=== PATIENT | female | born 1940 | race Caucasian/White ===

== ENCOUNTER 2024-09-15 11:24 | Emergency (ER) | payer MEDICARE, OTHER ==
[~2024-09-15] VITALS: Ht 157.5 cm; Wt 58.0 kg
[~2024-09-15 11:24] MED LIST: ALBU8.5H2 INH; AMLO1CAP59 PO; CALC-336 PO; CYAN100087 PO; IBUP-24 PO; IRBE150T51 PO; OLOP2.5D12 OP; [UNRECOGNIZED DRUG - CODE] PO
[2024-09-15 11:51] LABS: BILIRUBIN,URINE NEGATIVE (Neg); CLARITY,URINE CLOUDY (Clear); COLOR,URINE YELLOW (Yellow); GLUCOSE, URINE NEGATIVE (Neg); KETONES,URINE NEGATIVE (Neg); LEUKOCYTE ESTERASE ,URINE MODERATE (Neg); NITRITES, URINE NEGATIVE (Neg); OCCULT BLOOD,URINE MODERATE (Neg); PROTEIN,URINE TRACE mg/dl (Neg); UROBILINOGEN,URINE 0.2 E.U/dL (0.2-1.0)
[2024-09-15 11:56] LABS: UA COLLECTION TYPE CLN CATCH MIDSTREAM
[2024-09-15 11:57] LABS: BACTERIA,URINE 3+ /HPF (Neg); WBC,URINE TNTC /HPF (0-4)
[2024-09-15 11:58] LABS: AMORPHOUS URATES 1+; MUCUS STRANDS NONE SEEN /LPF (Neg); SQUAMOUS EPITHELIAL CELL,UR NONE SEEN /LPF (FEW)
--- NOTE | 2024-09-15 12:04 | Physician Documentation ---
History of Present Illness ~ Chief Complaint: Urinary Symptoms Stated Complaint: UTI Time Seen by MD: 11:57 HPI This 84-year-old female presents to the ED with a complaint of urinary symptoms. States he does not have typical UTI symptoms but does have a history of UTI. She reports foul-smelling urine. denies any fever Medication Reconciliation Allergies: Coded Allergies: Penicillins (Verified Allergy, Unknown, RASH, 09/24/13) Sulfa (Sulfonamide Antibiotics) (Verified Allergy, Unknown, RASH, 09/24/13) dexlansoprazole (Verified Allergy, Unknown, RASH, 09/24/13) erythromycin base (Verified Allergy, Unknown, RASH, 09/24/13) ibandronate sodium (Verified Allergy, Unknown, RASH, 09/24/13) pantoprazole (Verified Allergy, Unknown, RASH, 09/24/13) terbinafine (Verified Allergy, Unknown, RASH, 09/24/13) Opioids - Morphine Analogues (Verified Adverse Reaction, Unknown, SEVERE VOMITING, 09/24/13) Scheduled Amlodipine Besylate/Benazepril 5/10 MG* (Amlodipine-Benazepril 5/10 MG*), 1 CAP PO DAILY, (Reported) Calcium Carbonate (Calcium), 1 TAB PO DAILY, (Reported) Cephalexin*Monohydrate* (Keflex*), 1 CAP PO QID Cyanocobalamin (Vitamin B-12) (Vitamin B-12), 1 TAB PO DAILY, (Reported) Irbesartan* (Avapro*), 2 TAB PO DAILY, (Reported) Olopatadine Hcl (Pataday), 1 DROP OP DAILY, (Reported) Ranitidine Hcl (Ranitidine Hcl), 150 MG PO BID, (Reported) Scheduled PRN Albuterol Sulfate (Proair Hfa), 2 PUFFS INH Q4H PRN for SOB or wheezing, (Reported) Ibuprofen (Advil), 8 TAB PO DAILY PRN for pain, (Reported) Review of Systems All Other Systems at this time: Reviewed and Negative ROS As stated above in the HPI, otherwise all systems are reviewed and negative. Physical Exam Vital Signs: Temperature: 97.0, Source: Temporal, Heart Rate: 88, Respiratory Rate: 18, BP: 155/66, Pulse Oximetry: 99, Weight: 58.000 Physical Exam General: Alert, no apparent distress. Neck: Full range of motion. Respiratory: Lungs clear, no respiratory distress. Cardiovascular: Regular rate and rhythm, no murmurs. Extremities: Normal range of motion, no deformity. Neurologic: Oriented x4. Psychiatric: Normal mood and affect. Skin: Normal color, warm and dry. No edema, no ecchymosis. Progress Results/Orders Results/Orders Completed Orders - JASON HENDRICKS SPAR [facility] Cephalexin Capsule (Keflex Capsule) (09/15/24 12:05) Medications Received in ER Medications (Trade) Dose Ordered Sig/[place] Route PRN Reason Start Time Stop Time Status Last Admin Dose Admin (Keflex capsule) 500 mg ONCE ONCE PO 09/15/24 12:05 09/15/24 12:06 DC 09/15/24 12:19 500 MG Vital Signs 09/15/24 09/15/24 09/15/24 11:29 12:20 12:44 Temp 97.0 97.0 97.0 Pulse 88 79 79 Resp 18 18 18 B/P (MAP) 155/66 147/80 (102) 139/74 Pulse Ox 99 99 100 O2 Flow Rate 0 Laboratory Tests Test 09/15/24 11:32 Urine Specimen Description Cln catch midstream Urine Color Yellow Urine Clarity Cloudy Urine pH 6.0 Urine Specific [place] 1.010 Urine Protein Trace Urine Glucose (UA) Negative Urine Ketones Negative Urine Occult Blood Moderate H Urine Nitrite Negative Urine Bilirubin Negative Urine Urobilinogen 0.2 Urine Leukocyte Esterase Moderate H Urine RBC 10-20 Urine WBC Tntc H Urine Squamous Epithelial Cells None seen Urine Amorphous Urates 1+ Urine Bacteria 3+ Urine Mucus None seen Urine Culture Indicated Indicated Volume Urine Centrifuged 2 ml Urine Comment Low volume Microbiology Date/Time Source Procedure Growth Status 09/15/24 11:58 Urine Clean Catch Midstream Urine Culture - Preliminary Culture received. Resulted Medical Decision Making Findings And to treat the patient for a UTI based on urinalysis. She states that it has been quite sometime since she has had Keflex but it did were for her previous UTI.. She does not present as acutely ill. She clearly meets criteria for outpatient therapy. Her mental status is intact Urinary Diff Dx:Considerations: Include: AAA, , Aortic dissection, Appe ndicitis, Bowel obstruction, Cholelithiasis, Choleangitis, DJD, Ectopic , Hepatitis, HNP, Impaction, Intrauterine , Musculoskeletal pain, Ovarian torsion, Pancreatitis, PID, Post-Op complication, Pyelonephritis, Renal failure, Strain, Urinary Obstruction, Urolithiasis, Urinary retention, UTI, Vaginitis, Other Departure Disposition: 01 HOME / SELF CARE / HOMELESS Impression: Primary Impression: Acute urinary tract infection Condition: Stable Discharge Instructions: Urinary Tract Infection, Adult Referrals: NO PRIMARY CARE PROVIDER (PCP) Prescriptions Cephalexin*Monohydrate* (Keflex*) 500 Mg Capsule 1 CAP PO QID, #40 CAP Prov: JASON HENDRICKS NP 09/15/24 Signature Scribe Signature: t Attestation: The note accurately reflects work and decisions made by me.Jason Hendricks - VENTURA 09/15/24 18:27 JASON HENDRICKS NP September 15, 2024 12:04
[2024-09-15] MEDS: cephalexin 250mg capsule PO ONE (12:19)
[2024-09-15] MEDS ORDERED: CEPH-585 PO (12:31)
[2024-09-15 12:44] VITALS: BP 139/74; PULSE 79; RESP 18; TEMP 97; O2SAT 100
== END 2024-09-15 12:49 | disposition home or self-care (01) ==
LOC: ER 11:25
DX: N39.0 Urinary tract infection, site not specified (principal); Z88.0 Allergy status to penicillin; Z88.1 Allergy status to other antibiotic agents; Z88.2 Allergy status to sulfonamides; Z88.5 Allergy status to narcotic agent
CPT/HCPCS: 81001; 87077; 87088; 87186; 99283

== ENCOUNTER 2024-12-25 10:29 | Emergency (ER) | payer MEDICARE, OTHER ==
[~2024-12-25] VITALS: Ht 157.5 cm; Wt 51.5 kg
[~2024-12-25 10:29] MED LIST changes: +CEPH-585 PO
[2024-12-25 10:30] VITALS: TEMP 97.9
[2024-12-25 11:16] LABS: MEAN PLATELET VOLUME 7.2 FL (7.4-10.4); RED CELL DISTRIBUTION WIDTH 14.5 % (11.5-14.5)
[2024-12-25 11:34] LABS: CREATININE 1.31 MG/DL (0.40-0.90); TOTAL CARBON DIOXIDE 23.2 MMOL/L (24-32); eCRCL 25 ML/MIN; eGFR 39 ML/MIN
[2024-12-25 11:34] LABS: LEUKOCYTE ESTERASE ,URINE LARGE (Neg); NITRITES, URINE POSITIVE (Neg); OCCULT BLOOD,URINE SMALL (Neg)
[2024-12-25 11:40] LABS: UA COLLECTION TYPE CLN CATCH MIDSTREAM
[2024-12-25 11:42] LABS: SQUAMOUS EPITHELIAL CELL,UR NONE SEEN /LPF (FEW)
--- NOTE | 2024-12-25 14:49 | Physician Documentation ---
History of Present Illness ~ Chief Complaint: Urinary Symptoms Stated Complaint: BLADDER INFECTION Time Seen by MD: 10:47 Primary Medical Doctor: radha [facility] Patient is an 84-year-old female that presents to the emergency department with dysuria and urinary frequency x2 weeks. Patient denies fever chills, confusion, nausea or vomiting at this time. Patient reports that she was treated for a UTI in July and possibly in September. Patient denies any other symptoms at this time. Medication Reconciliation Allergies: Coded Allergies: Penicillins (Verified Allergy, Unknown, RASH, 09/24/13) Sulfa (Sulfonamide Antibiotics) (Verified Allergy, Unknown, RASH, 09/24/13) dexlansoprazole (Verified Allergy, Unknown, RASH, 09/24/13) erythromycin base (Verified Allergy, Unknown, RASH, 09/24/13) ibandronate sodium (Verified Allergy, Unknown, RASH, 09/24/13) pantoprazole (Verified Allergy, Unknown, RASH, 09/24/13) terbinafine (Verified Allergy, Unknown, RASH, 09/24/13) Opioids - Morphine Analogues (Verified Adverse Reaction, Unknown, SEVERE VOMITING, 09/24/13) Scheduled Amlodipine Besylate/Benazepril 5/10 MG* (Amlodipine-Benazepril 5/10 MG*), 1 CAP PO DAILY, (Reported) Calcium Carbonate (Calcium), 1 TAB PO DAILY, (Reported) Cephalexin*Monohydrate* (Keflex*), 1 CAP PO QID Cyanocobalamin (Vitamin B-12) (Vitamin B-12), 1 TAB PO DAILY, (Reported) Irbesartan* (Avapro*), 2 TAB PO DAILY, (Reported) Olopatadine Hcl (Pataday), 1 DROP OP DAILY, (Reported) Ranitidine Hcl (Ranitidine Hcl), 150 MG PO BID, (Reported) Scheduled PRN Albuterol Sulfate (Proair Hfa), 2 PUFFS INH Q4H PRN for SOB or wheezing, (Reported) Ibuprofen (Advil), 8 TAB PO DAILY PRN for pain, (Reported) Review of Systems ROS As stated above in the HPI, otherwise all systems are reviewed and negative. Physical Exam Vital Signs: Temperature: 97.9, Source: Temporal, Heart Rate: 58, Respiratory Rate: 16, BP: 146/74, Pulse Oximetry: 95, Weight: 51.500 Oxygen Flow Rate: 0 Physical Exam VITALS: Reviewed and as above. GENERAL: Alert, no apparent distress. HEENT: Normocephalic, atraumatic, PERRL, EOMI, dry mucosa, no erythema RESPIRATORY: Lungs clear, normal breath sounds, no respiratory distress. CHEST: No accessory muscle use, no retractions CV: Regular rate, rhythm, no edema, no murmur, No: JVD GI: Soft, non-tender, bowels sounds present, no rebound, guarding, or rigidity BACK: No CVA tenderness, or swelling MUSCULOSKELETAL No deformities, no edema SKIN: Warm and dry, no rash NEURO: Oriented x4, No motor or sensory deficit PSYCH: Normal mood and affect, no agitation Progress Results/Orders Results/Orders Completed Orders - MARGI SOLOMON [facility]URNER Cbc/Diff (12/25/24 10:37) CMP (12/25/24 10:37) Vital Signs 12/25/24 12/25/24 12/25/24 10:30 12:26 13:23 Temp 97.9 Pulse 79 82 58 Resp 15 16 16 B/P (MAP) 148/67 130/76 (94) 146/74 (98) Pulse Ox 98 99 95 O2 Flow Rate 0 0 Laboratory Tests Test 12/25/24 10:37 12/25/24 11:01 Urine Specimen Description Cln catch midstream Urine Color Yellow Urine Clarity Turbid Urine pH 6.0 Urine Specific [place] 1.010 Urine Protein Trace Urine Glucose (UA) Negative Urine Ketones Negative Urine Occult Blood Small Urine Nitrite Positive H Urine Bilirubin Negative Urine Urobilinogen 0.2 Urine Leukocyte Esterase Large H Urine RBC 3-10 Urine WBC Tntc H Urine Squamous Epithelial Cells None seen Urine Transitional Epithelial Cells Few Urine Bacteria 4+ Urine Culture Indicated Indicated Volume Urine Centrifuged 10 ml Urine Comment White Blood Count 3.3 L Red Blood Count 3.21 L Hemoglobin 10.5 L Hematocrit 30.7 L Mean Corpuscular Volume 95.4 Mean Corpuscular Hemoglobin 32.8 H Mean Corpuscular Hemoglobin Concent 34.4 Red Cell Distribution Width 14.5 Platelet Count 184 Mean Platelet Volume 7.2 L Neutrophils (%) (Auto) 67.8 Lymphocytes (%) (Auto) 14.5 L Monocytes (%) (Auto) 14.8 H Eosinophils (%) (Auto) 2.4 Basophils (%) (Auto) 0.5 Neutrophils # (Auto) 2.2 Lymphocytes # (Auto) 0.5 L Monocytes # (Auto) 0.5 Eosinophils # (Auto) 0.1 Basophils # (Auto) 0.0 CBC Comment Sodium Level 138 Potassium Level 3.9 Chloride Level 108 H Carbon Dioxide Level 23.2 L Anion Gap 7 L Blood Urea Nitrogen 18 Creatinine 1.31 H Estimated GFR/1.73 m2 39 BUN/Creatinine Ratio 13.7 Glucose Level 65 L Calcium Level 9.5 Total Bilirubin 0.3 Aspartate Amino Transf (AST/SGOT) 33 Alanine Aminotransferase (ALT/SGPT) 26 Alkaline Phosphatase 82 Total Protein 7.4 Albumin 3.5 Globulin 3.9 Albumin/Globulin Ratio 0.9 L Chemistry Comments Microbiology Date/Time Source Procedure Growth Status 12/25/24 11:43 Urine Clean Catch Midstream Urine Culture - Preliminary Culture received. Resulted Medical Decision Making Findings This patient presents with symptoms consistent with acute uncomplicated cystitis. Concerns or recurrent or unresolved cystitis. No systemic symptoms. Not septic. Well appearing. Low suspicion for acute pyelonephritis given lack of fever, CVAT, or systemic features. Low suspicion for kidney stone or infected stone. Upreg negative so doubt ectopic pregnancy_. Low suspicion for ovarian torsion, PID, or appendicitis. Patient will follow up with primary care provider at the end of her antibiotic regimen to ensure that the infection has resolved. Return to the emergency department if she has any worsening of her current symptoms i.e. fever chills confusion nausea vomiting, abdominal pain, blood in her urine or any other concerning symptoms. Departure Disposition: 01 HOME / SELF CARE / HOMELESS Impression: Primary Impression: Acute urinary tract infection Additional Impression: Recurrent urinary tract infection Condition: Stable Discharge Instructions: Dysuria, Urinary Tract Infection, Adult Additional Instructions: This patient presents with symptoms consistent with acute uncomplicated cystitis. Concerns or recurrent or unresolved cystitis. No systemic symptoms. Not septic. Well appearing. Low suspicion for acute pyelonephritis given lack of fever, CVAT, or systemic features. Low suspicion for kidney stone or infected stone. Upreg negative so doubt ectopic pregnancy_. Low suspicion for ovarian torsion, PID, or appendicitis. Patient will follow up with primary care provider at the end of her antibiotic regimen to ensure that the infection has resolved. Return to the emergency department if she has any worsening of her current symptoms i.e. fever chills confusion nausea vomiting, abdominal pain, blood in her urine or any other concerning symptoms. Please increase your fluids, please take your medication until it is completed, Tylenol ibuprofen as needed for discomfort if you are able to take them please follow up with her primary care provider at the end of her antibiotic course or with any other concerns. Please return to the emergency department if you have any worsening or recurrent symptoms or any additional concerning symptoms that we discussed here today. Referrals: NO PRIMARY CARE PROVIDER (PCP) Prescriptions Cephalexin*Monohydrate* (Keflex*) 500 Mg Capsule 1 CAP PO QID for 10 Days, #40 CAP Prov: MARGI SOLOMON 12/25/24 Education Educated: Patient Educated regarding: diagnosis, treatment, prognosis, need for follow up Signature Scribe Signature: A Attestation: Scribed for Margi Solomon by MANDY Marshall . 12/25/24 14:53 MARGI SOLOMON Dec 25, 2024 14:49
[2024-12-25] MEDS ORDERED: CEPH-585 PO (14:51)
[2024-12-25 15:11] VITALS: BP 150/81; PULSE 72; RESP 16; O2SAT 98
== END 2024-12-25 15:13 | disposition home or self-care (01) ==
LOC: ER 10:30
DX: N39.0 Urinary tract infection, site not specified (principal); Z88.0 Allergy status to penicillin; Z88.1 Allergy status to other antibiotic agents; Z88.2 Allergy status to sulfonamides; Z88.5 Allergy status to narcotic agent; Z87.440 Personal history of urinary (tract) infections
CPT/HCPCS: 36415; 80053; 81001; 85025; 87077; 87088; 87186; 99283